=== PATIENT | male | born 2000 | race Caucasian/White ===

== ENCOUNTER 2022-09-19 03:40 | Emergency (ER) | payer BC ==
[2022-09-19 03:49] VITALS: BP 127/65; PULSE 58; RESP 16; TEMP 97.7; BMI 17.2
[2022-09-19] MEDS ORDERED: ONDANSETRON *ODT* 4 MG TABLET SL ONE (04:30)
[2022-09-19] MEDS ORDERED: ONDANSETRON *ODT* 4 MG TABLET ONE (04:46)
== END 2022-09-19 06:02 | disposition home or self-care (01) ==
LOC: EDBD 03:40 → JER 03:40
DX: R11.10 Vomiting, unspecified (principal)
CPT/HCPCS: 99283-25; Q0162

== ENCOUNTER 2024-10-28 20:38 | Emergency (ER) | payer BC ==
[2024-10-28 20:44] VITALS: RESP 18; TEMP 98.6; BMI 17.6
[2024-10-28] MEDS: SODIUM CHLORIDE 0.9% 500 ML INFUS.BAG IV ONE (21:28)
[2024-10-28] MEDS: ACETAMINOPHEN 1000 MG/100 ML BAG IVPB ONE (21:28)
[2024-10-28] MEDS ORDERED: ACETAMINOPHEN INJECTION 100 ML ONE (21:29)
[2024-10-28 23:03] VITALS: BP 134/81; PULSE 72
[2024-10-28 23:13] LABS: BASO % 0.7 % (0-2.0); EOS % 0.5 % (0-4.5); HEMATOCRIT 43.3 % (35.4-49); HEMOGLOBIN 14.3 GM/dL (11.7-16.9); LYMPH % 28.2 % (8-40); MCH 26.5 pg (25.7-33.7); MCHC 32.9 g/dl (32.0-35.9); MEAN CELL VOLUME 80.6 fl (80-96); MONO % 7.3 % (3.8-10.2); NEUT % 63.3 % (42.8-82.8); RBC 5.37 M/mm3 (4.00-5.60); RDW 15.4 % (11.9-15.9); WHITE BLOOD COUNT 8.4 K/mm3 (4.0-10.0)
[2024-10-28 23:42] LABS: MEAN PLT VOLUME 8.4 fl (7.5-11.1); PLATELET COUNT 336 10^3/uL (134-434)
[2024-10-28 23:58] LABS: POTASSIUM 4.4 mmol/L (3.5-5.1)
[2024-10-29] LABS: CALCIUM 9.2 mg/dL (8.5-10.1)
[2024-10-29 00:01] LABS: ALBUMIN 4.2 g/dl (3.4-5.0); BLOOD UREA NITROGEN 15.6 mg/dL (7-18)
[2024-10-29 00:06] LABS: BILIRUBIN,TOTAL 0.7 mg/dL (0.2-1); TOT PROT 7.2 g/dl (6.4-8.2)
== END 2024-10-29 01:03 | disposition home or self-care (01) ==
LOC: JER 20:38
PROC: 3E033NZ Introduction of Analgesics, Hypnotics, Sedatives into Peripheral Vein, Percutaneous Approach (ICD-10-PCS; principal; 2024-10-28)
DX: E86.0 Dehydration (principal); R63.0 Anorexia; M79.10 Myalgia, unspecified site; R53.1 Weakness; R61 Generalized hyperhidrosis; R68.83 Chills (without fever); G47.9 Sleep disorder, unspecified
CPT/HCPCS: 0241U-QW; 36415; 80053; 82962; 83735; 85025; 99284-25; J0131